=== PATIENT | male | born 1945 | race African-American/Black ===

== ENCOUNTER 2018-05-03 13:02 | Inpatient (IN) | payer OTHER, MEDICARE ==
[2018-05-02 14:36] LABS: BASOPHILS % 0.7 % (0.0-1.0); EOSINOPHILS # (AUTO) 0.1 (0.0-0.4); HEMATOCRIT 28.4 % (38.2-49.6); HEMOGLOBIN 8.5 g/dL (14.0-18.0); LYMPHOCYTES % 34.3 % (18.0-39.1); MEAN CORPUSCULAR HEMOGLOBIN 24.6 pg (28-32); MEAN CORPUSCULAR HGB CONC 29.9 g/dL (31-35); MEAN CORPUSCULAR VOLUME 82.3 fL (81-99); MONOCYTES # (AUTO) 0.6 (0.2-0.8); MONOCYTES % 9.4 % (4.4-11.3); NEUTROPHILS # (AUTO) 3.1 (2.1-6.9); NEUTROPHILS % 53.6 % (38.7-80.0); PLATELET COUNT 231 x10e3/uL (140-360); RED BLOOD COUNT 3.45 x10e6/uL (4.3-5.7); RED CELL DISTRIBUTION WIDTH 19.9 % (11.7-14.4)
[2018-05-02 14:48] LABS: INR 0.97; PROTHROMBIN TIME 13.8 seconds (11.9-14.5)
[2018-05-02 14:56] LABS: ALANINE AMINOTRANSFERASE 11 IU/L (0-55); ALBUMIN 3.9 g/dL (3.5-5.0); ALBUMIN/GLOBULIN RATIO 1.1 (0.8-2.0); ALKALINE PHOSPHATASE 75 IU/L (40-150); ANION GAP 14.8 mmol/L (8-16); BLOOD UREA NITROGEN 20 mg/dL (7-26); BUN/CREATININE RATIO 16 (6-25); CALCIUM 9.7 mg/dL (8.4-10.2); CARBON DIOXIDE 22 mmol/L (22-29); CHLORIDE 109 mmol/L (98-107); CHOL/HDL RATIO 2.8 (3.9-4.7); CHOLESTEROL 156 MD/DL (0-199); CREATININE, SERUM 1.23 mg/dL (0.72-1.25); EST GLOMERULAR FILTRATION RATE > 60 ML/MIN (60-); GLUCOSE 104 mg/dL (74-118); HDL CHOLESTEROL 55 MG/DL (40-60); LDL CHOLESTEROL 91 MG/DL (60-130); POTASSIUM 3.8 mmol/L (3.5-5.1); SODIUM 142 mmol/L (136-145); TRIGLYCERIDES 49 MG/DL (0-149)
[~2018-05-03] VITALS: Ht 170.2 cm; Wt 68.5 kg
[2018-05-03] VITALS (33 sets, daily range): BP systolic 93–216; BP diastolic 51–208
[~2018-05-03 13:02] MED LIST: ASPIR 8181 MG PO; ATORVASTATIN CA10 MG PO; AVODART0.5 MG PO; COMBIVENT RESPIM4 GM IH; FERROUS SULFAT325 M1 PO; LOSARTAN POTASS50 MG PO; METFORMIN HCL500 MG PO; PANTOPRAZOLE SO40 MG PO; POTASSIUM GLUCONATE PO; SPIRIVA18 MCG INH; SUCRALFATE1 GM PO
[2018-05-03] MEDS ORDERED: ALPRAZOLAM 0.5 MG TAB ONE (14:28)
[2018-05-03] MEDS ORDERED: DIPHENHYDRAMINE HCL 25 MG CAP ONE (14:28)
[2018-05-03] MEDS ORDERED: MIDAZOLAM HCL 2 MG/2 ML VIAL ONE ×2 (14:33→15:02)
[2018-05-03] MEDS ORDERED: FENTANYL CITRATE/PF 100MCG/2 ML INJ ONE (14:33)
[2018-05-03] MEDS ORDERED: LIDOCAINE HCL 2% LOCAL 20 ML VIAL ONE (14:33)
[2018-05-03] MEDS ORDERED: SODIUM CHLORIDE 0.9% 1000ML 1,000 ML ONE ×2 (14:34→17:36)
[2018-05-03] MEDS ORDERED: HEPARIN SOD/SOD CHLORIDE 2,000 ML ONE (14:34)
[2018-05-03] MEDS ORDERED: IOPAMIDOL 300MG/ML 100 ML INFUS..BTL IV ONE ×2 (14:34→15:31)
[2018-05-03] MEDS ORDERED: NITROGLYCERIN/D5W 200 MCG/ML 250 ML ONE (14:50)
[2018-05-03] MEDS ORDERED: VERAPAMIL HCL 2.5 MG/ML 2 ML VIAL ONE (14:50)
[2018-05-03] MEDS ORDERED: HEPARIN SOD (PORCINE) 1000 UNIT/ML 30ML ONE (15:13)
[2018-05-03] MEDS ORDERED: ALTEPLASE 50 MG/VIAL (29 MILLION IU) IV ONE (16:00)
--- NOTE | 2018-05-03 17:09 | Operative Report ---
DATE OF PROCEDURE: May 03, 2018 INDICATIONS: Peripheral arterial disease and claudication of the right lower extremity. PROCEDURES PERFORMED 1. Abdominal aortogram. 2. Right lower extremity angiogram. 3. Selective catheter placement of the left femoral artery to the right superficial femoral artery. 4. Additional third-order catheter placement of the left femoral artery to the right posterior tibial artery. 5. Atherectomy and drug-coated balloon angioplasty of the right femoral artery. 6. Primary thrombectomy of the right femoral artery. COMPLICATIONS: Thrombotic occlusion of the femoral artery necessitating thrombolysis. Access obtained in the left femoral artery. Abdominal aortogram demonstrates 70% stenosis of the left renal artery and iliacs. The aorta was ectatic with moderate plaque without any aneurysms. Iliac artery had mild disease. Right femoral artery stents were completely occluded. The patient received 8000 units of intra-arterial heparin. The sheath was exchanged to a 45-cm sheath. The lesions were crossed using a [place]runner wire. Orbital atherectomy was performed followed by a drug-coated balloon angioplasty. However, large amounts of thrombus with complete no reflow was noted. Perfusion catheter was introduced and transcatheter lysis was initiated. The patient's sheath was secured in place. Patient was transferred to the ICU in stable condition. Job#: [id number] BLANCHE
[2018-05-03] MEDS ORDERED: HYDRALAZINE HCL 20 MG/ML VIAL IV PRN (18:15)
[2018-05-03] MEDS ORDERED: MORPHINE SULFATE INJ 4 MG/ML INJ IV PRN (18:15)
[2018-05-03] MEDS ORDERED: LORAZEPAM 1 MG TAB PO PRN (18:15)
[2018-05-03] MEDS: ALTEPLASE RECOMBINANT 2 MG in SODIUM CHLORIDE 0.9% 50ML 50 ML IV SCH ×2 (18:19→21:50)
[2018-05-03] MEDS: SODIUM CHLORIDE 0.9% 1000ML 1,000 ML IV SCH (18:19)
[2018-05-03] MEDS ORDERED: HEPARIN 25,000U/0.45% NS 250ML 1,200 UNIT in SODIUM CHLORIDE 0.9% 250ML 0 ML IV SCH (18:30)
[2018-05-03] MEDS: HYDROCODONE/APAP 7.5MG-325MG 1 EA TAB PO PRN (19:50)
[2018-05-03] MEDS: ATORVASTATIN 40 MG TAB PO SCH (20:01)
[2018-05-04] VITALS (100 sets, daily range): BP systolic 90–154; BP diastolic 55–133
[2018-05-04] MEDS: ALTEPLASE RECOMBINANT 2 MG in SODIUM CHLORIDE 0.9% 50ML 50 ML IV SCH ×2 (02:52→08:17)
[2018-05-04 04:54] LABS: BASOPHILS % 0.4 % (0.0-1.0); EOSINOPHILS # (AUTO) 0.1 (0.0-0.4); EOSINOPHILS % 2.5 % (0.0-6.0); HEMATOCRIT 26.3 % (38.2-49.6); HEMOGLOBIN 7.9 g/dL (14.0-18.0); LYMPHOCYTES # (AUTO) 1.3 (1.0-3.2); LYMPHOCYTES % 25.9 % (18.0-39.1); MEAN CORPUSCULAR HEMOGLOBIN 24.8 pg (28-32); MEAN CORPUSCULAR VOLUME 82.7 fL (81-99); MONOCYTES # (AUTO) 0.3 (0.2-0.8); MONOCYTES % 5.5 % (4.4-11.3); NEUTROPHILS # (AUTO) 3.2 (2.1-6.9); NEUTROPHILS % 65.5 % (38.7-80.0); PLATELET COUNT 216 x10e3/uL (140-360); RED BLOOD COUNT 3.18 x10e6/uL (4.3-5.7); RED CELL DISTRIBUTION WIDTH 19.7 % (11.7-14.4)
[2018-05-04 05:08] LABS: ANION GAP 11.1 mmol/L (8-16); BLOOD UREA NITROGEN 15 mg/dL (7-26); BUN/CREATININE RATIO 16 (6-25); CARBON DIOXIDE 22 mmol/L (22-29); CHLORIDE 109 mmol/L (98-107); CREATININE, SERUM 0.96 mg/dL (0.72-1.25); EST GLOMERULAR FILTRATION RATE > 60 ML/MIN (60-); GLUCOSE 90 mg/dL (74-118); POTASSIUM 4.1 mmol/L (3.5-5.1); SODIUM 138 mmol/L (136-145)
[2018-05-04] MEDS: SODIUM CHLORIDE 0.9% 1000ML 1,000 ML IV SCH ×2 (07:00→20:55)
[2018-05-04] MEDS ORDERED: HEPARIN SOD/SOD CHLORIDE 2,000 ML ONE (08:20)
[2018-05-04] MEDS ORDERED: LIDOCAINE HCL 2% LOCAL 20 ML VIAL ONE (08:20)
[2018-05-04] MEDS ORDERED: IOPAMIDOL 300MG/ML 100 ML INFUS..BTL IV ONE ×2 (08:20→09:11)
[2018-05-04] MEDS ORDERED: FENTANYL CITRATE/PF 100MCG/2 ML INJ ONE (08:42)
[2018-05-04] MEDS ORDERED: MIDAZOLAM HCL 2 MG/2 ML VIAL ONE (08:42)
[2018-05-04] MEDS ORDERED: HEPARIN SOD (PORCINE) 1000 UNIT/ML 30ML ONE (09:05)
[2018-05-04] MEDS ORDERED: NITROGLYCERIN/D5W 200 MCG/ML 250 ML ONE (09:05)
[2018-05-04] MEDS ORDERED: TICAGRELOR 90 MG TABLET ONE (09:26)
[2018-05-04] MEDS ORDERED: CLOPIDOGREL75 MG PO (10:26)
[2018-05-04] MEDS ORDERED: TYLENOL WITH C1 EACH PO (10:26)
[2018-05-04] MEDS ORDERED: LIPITOR20 MG PO (10:26)
[2018-05-04] MEDS ORDERED: ASPIRIN81 MG PO (10:26)
[2018-05-04] MEDS: CLOPIDOGREL BISULFATE 75 MG TAB PO SCH (10:29)
[2018-05-04] MEDS: ASPIRIN 81 MG CHEW TAB PO SCH (10:29)
[2018-05-04] MEDS ORDERED: MORPHINE SULFATE INJ 4 MG/ML INJ IV PRN (10:30)
[2018-05-04] MEDS: HYDROCODONE/APAP 7.5MG-325MG 1 EA TAB PO PRN (10:41)
--- NOTE | 2018-05-04 18:23 | Operative Report ---
DATE OF PROCEDURE: May 04, 2018 INDICATIONS: Peripheral arterial disease with critical limb ischemia. PROCEDURES PERFORMED 1. Third-order catheter placement, bilateral lower extremity angiograms. 2. Primary thrombectomy of the right femoral artery. 3. Removal of transcatheter lysis catheter. 4. Stent placement to the right popliteal and femoral arteries. COMPLICATIONS: None. RECOMMENDATIONS: Staged intervention in left femoral artery, dual-antiplatelet therapy for life. PROCEDURE IN DETAIL: Existing sheath was used for third-order catheter placement with angiogram of the right lower extremity. There was flow-limiting dissection in the distal right femoral artery with thrombus. Manual aspiration thrombectomy was performed along with Viabahn stent placement to the distal and to the mid and proximal popliteal artery with excellent end results. Two-vessel runoff to the right foot. Left leg angiogram demonstrated 70% stenosis in the mid left superficial femoral artery along with critical 90% stenosis in the distal left popliteal artery. Sheath was secured in place. Patient transferred to ICU for manual removal of sheath, and discharged home same day. Job#: [id number] VENKAT
[2018-05-04] MEDS: ATORVASTATIN 40 MG TAB PO SCH (20:37)
--- NOTE | 2018-05-04 23:57 | Discharge Summary ---
DISCHARGE DIAGNOSES: Peripheral arterial disease status post intervention of the right lower extremity. DISCHARGE CONDITION: Stable. DISCHARGE INSTRUCTIONS: Follow up in 2 weeks in the office. Regular diet. Ad-dario activity. DISCHARGE MEDICATIONS: Aspirin 81 mg a day, clopidogrel 75 mg a day, atorvastatin 40 mg a day, and Tylenol No. 3 one pill q.8h. p.r.n. HOSPITAL COURSE: Mr. Saba was admitted for elective intervention on his occluded right femoral artery stent. His procedure was complicated with thrombus and necessitated thrombolysis in the ICU overnight. Subsequently, he had a single stent placed to his popliteal artery with excellent 2-vessel runoff. He was discharged home in stable condition with instructions as listed above. FEDERICA ESCAMILLA MD Job#: [id number] [facility]
[2018-05-05] VITALS (15 sets, daily range): BP systolic 94–148; BP diastolic 53–80
[2018-05-05] MEDS: ASPIRIN 81 MG CHEW TAB PO SCH (07:50)
[2018-05-05] MEDS: CLOPIDOGREL BISULFATE 75 MG TAB PO SCH (07:50)
[2018-05-05] MEDS: HYDROCODONE/APAP 7.5MG-325MG 1 EA TAB PO PRN (07:53)
== END 2018-05-05 08:15 | disposition home or self-care (01) | DRG 272 ==
LOC: CATH LAB 13:02 → PACU V 17:09 → ICU 17:22
PROVIDERS: ADMIT Internal Medicine Interventional Cardiology; ATTEND Internal Medicine Interventional Cardiology
PROC: 04CK3ZZ Extirpation of Matter from Right Femoral Artery, Percutaneous Approach (ICD-10-PCS; 2018-05-03)
PROC: 047K3Z1 Dilation of Right Femoral Artery using Drug-Coated Balloon, Percutaneous Approach (ICD-10-PCS; 2018-05-03)
PROC: 3E05317 Introduction of Other Thrombolytic into Peripheral Artery, Percutaneous Approach (ICD-10-PCS; 2018-05-03)
PROC: 04CK3ZZ Extirpation of Matter from Right Femoral Artery, Percutaneous Approach (ICD-10-PCS; principal; 2018-05-04)
PROC: 047M3DZ Dilation of Right Popliteal Artery with Intraluminal Device, Percutaneous Approach (ICD-10-PCS; 2018-05-04)
PROC: 06PYX3Z Removal of Infusion Device from Lower Vein, External Approach (ICD-10-PCS; 2018-05-04)
DX: I73.9 Peripheral vascular disease, unspecified (principal); Z85.028 Personal history of other malignant neoplasm of stomach; Z90.49 Acquired absence of other specified parts of digestive tract; Z83.3 Family history of diabetes mellitus; Z82.49 Family history of ischemic heart disease and other diseases of the circulatory system
CPT/HCPCS: 36247; 36415; 37186; 37225; 37226; 75625; 75710; 75716; 80048; 80053; 80061; 85025; 85347; 85610; 85730; C1725; C1766; C1769; C1874; C2623; J1644; J2001; J2250; J2997; J7030; J7050; Q9967

== ENCOUNTER 2018-05-31 13:53 | Observation (INO) | payer MEDICARE ==
[2018-05-30 13:39] LABS: BASOPHILS % 0.6 % (0.0-1.0); EOSINOPHILS # (AUTO) 0.3 (0.0-0.4); EOSINOPHILS % 5.6 % (0.0-6.0); HEMOGLOBIN 7.9 g/dL (14.0-18.0); LYMPHOCYTES # (AUTO) 2.1 (1.0-3.2); LYMPHOCYTES % 41.4 % (18.0-39.1); MEAN CORPUSCULAR HEMOGLOBIN 25.2 pg (28-32); MEAN CORPUSCULAR HGB CONC 29.3 g/dL (31-35); MEAN CORPUSCULAR VOLUME 86.3 fL (81-99); MONOCYTES # (AUTO) 0.5 (0.2-0.8); MONOCYTES % 9.1 % (4.4-11.3); NEUTROPHILS # (AUTO) 2.2 (2.1-6.9); NEUTROPHILS % 43.3 % (38.7-80.0); PLATELET COUNT 242 x10e3/uL (140-360); RED BLOOD COUNT 3.13 x10e6/uL (4.3-5.7); RED CELL DISTRIBUTION WIDTH 21.5 % (11.7-14.4)
[2018-05-30 14:02] LABS: ALANINE AMINOTRANSFERASE 11 IU/L (0-55); ALBUMIN 3.8 g/dL (3.5-5.0); ALBUMIN/GLOBULIN RATIO 1.1 (0.8-2.0); ALKALINE PHOSPHATASE 71 IU/L (40-150); ANION GAP 12.1 mmol/L (8-16); CALCIUM 9.6 mg/dL (8.4-10.2); CARBON DIOXIDE 24 mmol/L (22-29); CHLORIDE 105 mmol/L (98-107); CREATININE, SERUM 1.07 mg/dL (0.72-1.25); EST GLOMERULAR FILTRATION RATE > 60 ML/MIN (60-); GLUCOSE 100 mg/dL (74-118); POTASSIUM 4.1 mmol/L (3.5-5.1); SODIUM 137 mmol/L (136-145)
[2018-05-30 14:14] LABS: BLOOD UREA NITROGEN 19 mg/dL (7-26)
[2018-05-30 14:20] LABS: BUN/CREATININE RATIO 18 (6-25)
[~2018-05-31] VITALS: Ht 170.2 cm; Wt 68.5 kg
[~2018-05-31 13:53] MED LIST changes: +ASPIRIN81 MG PO; +CLOPIDOGREL75 MG PO; +LIPITOR20 MG PO; +TYLENOL WITH C1 EACH PO
[2018-05-31] MEDS ORDERED: MIDAZOLAM HCL 2 MG/2 ML VIAL ONE (20:14)
[2018-05-31] MEDS ORDERED: HEPARIN SOD (PORCINE) 1000 UNIT/ML 30ML ONE (20:14)
[2018-05-31] MEDS ORDERED: LIDOCAINE HCL 2% LOCAL 20 ML VIAL ONE (20:15)
[2018-05-31] MEDS ORDERED: IOPAMIDOL 300MG/ML 100 ML INFUS..BTL IV ONE (20:15)
[2018-05-31] MEDS ORDERED: HEPARIN SOD/SOD CHLORIDE 2,000 ML ONE (20:15)
[2018-05-31] MEDS ORDERED: FENTANYL CITRATE/PF 100MCG/2 ML INJ ONE (20:15)
[2018-05-31] MEDS ORDERED: SODIUM CHLORIDE 0.9% 1000ML 1,000 ML ONE ×2 (20:56→20:59)
[2018-05-31] MEDS ORDERED: VERAPAMIL HCL 2.5 MG/ML 2 ML VIAL ONE (20:59)
[2018-05-31] MEDS ORDERED: PROTAMINE SULFATE 10 MG/ML 5 ML VIAL ONE (21:53)
[2018-05-31] MEDS ORDERED: SODIUM CHLORIDE 0.9% 100 ML 100 ML ONE (21:55)
[2018-05-31] MEDS ORDERED: MORPHINE SULFATE 2 MG/ML SYR IV PRN (23:15)
[2018-05-31] MEDS ORDERED: SODIUM CHLORIDE 0.9% 1000ML 1,000 ML IV SCH (23:15)
[2018-05-31] MEDS ORDERED: ACETAMINOPHEN/CODEINE 300MG - 30MG TAB PO PRN (23:30)
[2018-05-31 23:45] VITALS: BP 143/70
[2018-06-01 04:58] LABS: BASOPHILS % 0.5 % (0.0-1.0); EOSINOPHILS # (AUTO) 0.2 (0.0-0.4); EOSINOPHILS % 4.6 % (0.0-6.0); HEMATOCRIT 20.3 % (38.2-49.6); LYMPHOCYTES # (AUTO) 1.1 (1.0-3.2); LYMPHOCYTES % 25.1 % (18.0-39.1); MEAN CORPUSCULAR HEMOGLOBIN 25.6 pg (28-32); MEAN CORPUSCULAR VOLUME 82.5 fL (81-99); MONOCYTES # (AUTO) 0.5 (0.2-0.8); MONOCYTES % 10.5 % (4.4-11.3); NEUTROPHILS # (AUTO) 2.6 (2.1-6.9); NEUTROPHILS % 59.1 % (38.7-80.0); PLATELET COUNT 219 x10e3/uL (140-360); RED BLOOD COUNT 2.46 x10e6/uL (4.3-5.7); RED CELL DISTRIBUTION WIDTH 20.9 % (11.7-14.4)
[2018-06-01 05:15] LABS: HEMOGLOBIN 6.3 g/dL (14.0-18.0)
[2018-06-01 05:43] LABS: ANION GAP 9.9 mmol/L (8-16); BLOOD UREA NITROGEN 17 mg/dL (7-26); BUN/CREATININE RATIO 20 (6-25); CALCIUM 8.4 mg/dL (8.4-10.2); CARBON DIOXIDE 22 mmol/L (22-29); CHLORIDE 112 mmol/L (98-107); CREATININE, SERUM 0.86 mg/dL (0.72-1.25); EST GLOMERULAR FILTRATION RATE > 60 ML/MIN (60-); GLUCOSE 89 mg/dL (74-118); POTASSIUM 3.9 mmol/L (3.5-5.1); SODIUM 140 mmol/L (136-145)
[2018-06-01] MEDS ORDERED: SODIUM CHLORIDE 0.9% 250ML 250 ML IV ONE (06:15)
[2018-06-01 08:23] VITALS: BP 124/66
[2018-06-01] MEDS: ASPIRIN 81 MG CHEW TAB PO SCH (09:10)
[2018-06-01] MEDS: ATORVASTATIN 20 MG TAB PO SCH (09:10)
[2018-06-01] MEDS: CLOPIDOGREL BISULFATE 75 MG TAB PO SCH (09:11)
[2018-06-01] MEDS ORDERED: SODIUM CHLORIDE 0.9% 250ML 250 ML ONE (09:40)
--- NOTE | 2018-06-01 10:56 | Progress Note ---
DATE: CARDIOLOGY PROGRESS NOTE SUBJECTIVE: Patient is without any complaints this morning. He states that he feels well. Denies any shortness of breath, palpitations, chest pain, or dizziness. OBJECTIVE VITAL SIGNS: Temperature 96.7, pulse 79, respiratory rate 16, blood pressure 124/66, oxygen saturation 100% on room air. GENERAL: Alert and oriented x3, resting comfortably in bed, does not appear to be in any acute distress. NECK: Supple. No JVD noted. CARDIOVASCULAR: Regular rate and rhythm. Normal S1, S2. No S3 or S4 auscultated. LUNGS: Clear to auscultation throughout. ABDOMEN: Rounded. Normoactive bowel sounds. LOWER EXTREMITIES: 1+ pitting edema, 1+ pedal pulses. Left lower extremity, 2+ popliteal pulse. CARDIOVASCULAR MEDICATIONS 1. Plavix 75 mg p.o. daily. 2. Atorvastatin 40 p.o. daily. 3. Aspirin 81 p.o. daily. LABS: WBC 4.38, hemoglobin 6.3 and initially 7.9, hematocrit 20.3, platelets 219. Sodium 140, potassium 3.9, BUN 17, creatinine 0.86. TELEMETRY: Sinus rhythm. ASSESSMENT 1. Peripheral arterial disease, status post left superficial femoral artery atherectomy yesterday. 2. Anemia, requiring transfusion. PLAN: Transfuse 2 PRBCs this morning. Repeat hemoglobin and hematocrit check 2 hours post. If hemoglobin does stay stable in the next 24 hours, we will plan to discharge tomorrow. Otherwise, monitor right groin access for any evidence of bleeding. Patient remains to be asymptomatic from his anemia at this point. Maintain in bed for the rest of the day; however, ambulate later on and monitor symptoms. We will continue to follow this patient very closely. Dictated by: Doris Freedman NP Job#: [id number] NATE
[2018-06-01 11:55] VITALS: BP 132/74
[2018-06-01 16:33] VITALS: BP 138/67
[2018-06-01 17:12] VITALS: BP 138/67
--- NOTE | 2018-06-01 17:39 | Operative Report ---
DATE OF PROCEDURE: May 31, 2018 INDICATION: Peripheral arterial disease. PROCEDURES PERFORMED 1. Third-order catheter placement in right femoral artery, left superficial femoral artery, and the lateral extremity angiogram. 2. Additional third-order catheter placement from the right femoral artery and left posterior tibial artery. 3. Atherectomy of the left popliteal artery. 4. Secondary thrombectomy of the left femoral artery. 5. Placement of central venous line. 6. Deployment of right groin Mynx closure device. COMPLICATIONS: None. RECOMMENDATIONS: Medical therapy and antiplatelet. Access obtained in the right femoral artery. A sheath was advanced into the left femoral artery (third-order catheter placement). Diffuse 50% stenosis of the proximal and mid femoral arteries, the left popliteal artery had a focal 90% stenosis, anterior tibial and peroneal arteries are occluded, and posterior tibial artery had an 80% stenosis. A decision was made to intervene on the popliteal artery. The patient received 9000 units of intra-arterial heparin. Orbital atherectomy using a 1.5 mm [place] was performed following which a single 5 x 80 mm Lutonix drug-coated balloon was used for angioplasty, excellent result, 1 vessel runoff to the left foot. Right groin arterial sheath was repaired using Mynx. Venous sheath was secured in place for central venous access. Patient was admitted to the hospital for overnight observation. Job#: [id number] ZACKERY
[2018-06-01 19:20] VITALS: BP 139/74
[2018-06-01 21:11] LABS: HEMATOCRIT 27.7 % (38.2-49.6); HEMOGLOBIN 8.9 g/dL (14.0-18.0)
[2018-06-01 22:37] VITALS: BP 139/74
[2018-06-02 00:15] VITALS: BP 126/67
[2018-06-02 04:00] VITALS: BP 123/68
[2018-06-02 07:53] VITALS: BP 128/73
[2018-06-02] MEDS: ATORVASTATIN 20 MG TAB PO SCH (09:11)
[2018-06-02] MEDS: ASPIRIN 81 MG CHEW TAB PO SCH (09:11)
[2018-06-02] MEDS: CLOPIDOGREL BISULFATE 75 MG TAB PO SCH (09:11)
[2018-06-02 09:33] LABS: BASOPHILS % 0.6 % (0.0-1.0); EOSINOPHILS # (AUTO) 0.2 (0.0-0.4); EOSINOPHILS % 3.7 % (0.0-6.0); HEMATOCRIT 32.2 % (38.2-49.6); HEMOGLOBIN 10.1 g/dL (14.0-18.0); LYMPHOCYTES # (AUTO) 1.2 (1.0-3.2); MEAN CORPUSCULAR HEMOGLOBIN 26.6 pg (28-32); MEAN CORPUSCULAR HGB CONC 31.4 g/dL (31-35); MEAN CORPUSCULAR VOLUME 84.7 fL (81-99); MONOCYTES # (AUTO) 0.5 (0.2-0.8); MONOCYTES % 9.7 % (4.4-11.3); NEUTROPHILS # (AUTO) 3.2 (2.1-6.9); NEUTROPHILS % 61.6 % (38.7-80.0); PLATELET COUNT 189 x10e3/uL (140-360); RED CELL DISTRIBUTION WIDTH 19.3 % (11.7-14.4)
--- NOTE | 2018-06-02 11:19 | Progress Note ---
DATE: CARDIOLOGY PROGRESS NOTE SUBJECTIVE: Patient is without any complaints this morning. He states he feels very well. Denies any chest pain, shortness of breath, claudication, dizziness, or syncope. OBJECTIVE VITAL SIGNS: Temperature 97.4, pulse 93, respiratory rate 16, blood pressure 128/73, oxygen saturation 99% on room air. GENERAL: Alert and oriented x3, resting comfortably in bed, does not appear to be in any acute distress. LUNGS: Clear to auscultation throughout. No wheezing. No rhonchi or crackles. CARDIOVASCULAR: Regular rate and rhythm. Normal S1, S2. No S3 or S4 auscultated. EXTREMITIES: Lower extremities; 1+ pitting edema, 1+ pedal pulses. CARDIOVASCULAR MEDICATIONS 1. Plavix 75 mg p.o. daily. 2. Atorvastatin 40 p.o. daily. 3. Aspirin 81 p.o. daily. LABS: WBC 5.16, hemoglobin 10.1, hematocrit 32.2, platelets 189. Sodium 140, potassium 3.9, BUN 17, creatinine 0.86. TELEMETRY: Sinus rhythm. ASSESSMENT 1. Peripheral arterial disease, status post left superficial femoral artery atherectomy on 05/31/2018. 2. Anemia, requiring transfusion. PLAN: Okay to discharge this patient from cardiac standpoint. Hemoglobin and hematocrit have been stable after 2 units of PRBC. Monitor anemia as outpatient. Right groin access with no evidence of further bleeding. Continue to monitor this patient closely as outpatient. Continue the above-listed cardiac medications. Patient is to follow up with cardiology in the next week. Dictated by: Doris Freedman NP Job#: [id number] GOLDEN
== END 2018-06-02 10:25 | disposition home or self-care (01) ==
LOC: CATH LAB 13:53 → IMCU 21:35
PROVIDERS: ADMIT Internal Medicine Interventional Cardiology; ATTEND Internal Medicine Interventional Cardiology
DX: I70.202 Unspecified atherosclerosis of native arteries of extremities, left leg (principal); D64.9 Anemia, unspecified; Z01.812 Encounter for preprocedural laboratory examination; Z79.82 Long term (current) use of aspirin; Z79.02 Long term (current) use of antithrombotics/antiplatelets
CPT/HCPCS: 36415 ×3; 36430; 37225; 75710; 80048; 80053; 85014; 85018; 85025 ×3; 86850; 86900; 86920; C1724; C1725; C1766; C1769 ×2; C1887; G0378 ×3; J1642; J1644; J2001; J2250; J2720; J7030; J7050; P9016; Q9967; 37224